=== PATIENT | female | born 2005 | race Caucasian/White ===

== ENCOUNTER 2024-03-16 08:02 | Emergency (ER) | payer BC, SELFPAY ==
[2024-03-16] VITALS (8 sets, daily range): BP systolic 98–118; BP diastolic 62–89; PULSE 72–91; RESP 16–20; TEMP 36.7; O2SAT 96–100; BMI 18.8
[2024-03-16] MEDS: LACTATED RINGERS 1000ML 1,000 ML 999 ML IV (08:16)
[2024-03-16] MEDS: ONDANSETRON 4MG/2ML VIAL 4 MG IV (08:16)
[2024-03-16 08:21] LABS: MANUAL DIFFERENTIAL MANUAL DIFFERENTIAL (MANUAL DIFF)
[2024-03-16 08:24] LABS: Basophils % 0.2 % (0.1-2.0); Eosinophils # 0.1 K/mm3 (0.0-0.4); Eosinophils % 0.6 % (0.1-12.0); Hematocrit 38.8 % (37.0-47.0); Lymphocytes # 0.6 K/mm3 (0.7-4.5); Lymphocytes % 4.1 % (10-50); Mean Corpuscular HGB Conc 30.8 g/dL (31.8-35.4); Mean Corpuscular Hemoglobin 27.1 pg (27.0-31.2); Mean Corpuscular Volume 87.9 fl (81-99); Mean Platelet Volume 7.5 fl (7.4-10.4); Monocytes # 0.7 K/mm3 (0.1-1.0); Monocytes % 5.2 % (1.7-9.3); Platelet Count 497 K/mm3 (142-424); Red Blood Count 4.41 M/mm3 (4.20-5.40); Red Cell Distribution Width 16.1 % (11.5-17.5); White Blood Count 14.5 K/mm3 (4.5-13.0)
--- NOTE | 2024-03-16 08:29 | HMH.EDGENADL ---
Discharge Plan Disposition Patient Disposition: Home, Self-Care Condition: Good Prescriptions Prescriptions: New dicyclomine 20 mg tablet 20 mg PO BID PRN (Reason: abdominal pain) 7 Days Qty: 14 0RF ondansetron 4 mg tablet,disintegrating 4 mg PO Q6H PRN (Reason: nausea and vomiting) 4 Days Qty: 16 0RF Referrals Follow up/Referrals: Provider,Referral, MD [Primary Care Provider] - See instructions Activity Restrictions/Add. Instructions Additional Instructions/Restrictions: You have been evaluated in the ED for your complaints. You may follow-up with your PCP in the next 3 to 5 days. Please return to ED for any new or worsening symptoms. Please drink plenty of fluids over the next several days. I have written for dicyclomine to assist with abdominal spasms. I have also written for Zofran to assist with nausea. Clinical Impressions Clinical Impression: Gastroenteritis Instructions Patient Instructions: Diarrhea, DI for Nausea -- Adult, Nausea and Vomiting-Adult Discharge ED Provider: Enrique Lopez Adult HPI General Chief complaint: Nausea/Vomiting/Diarrhea Stated complaint: weakness, Vomiting Time Seen by Provider: 03/16/24 08:10 Mode of Arrival: Ambulatory Source of Information: Patient Limitations: No Limitations Description of Symptoms (Recalled from ER Triage Doc. by RN): Patient reports N/V/D since 0400 this morning. History of Present Illness HPI narrative: 18-year-old female with past medical history significant for anxiety and depression presents today for evaluation concerning abdominal pain, nausea, vomiting and nonbloody diarrhea as well as a generalized headache onset around 3 AM this morning. She denies any fevers but states that she has felt chills. She states that she did not have anything unusual to eat before bed. Denies any chest pain, shortness of breath, dysuria or hematuria. No further complaints. Related Data Previous Rx's Medication Instructions Recorded dicyclomine 20 mg tablet 20 mg PO BID PRN abdominal pain 7 03/16/24 days #14 tabs ondansetron 4 mg disintegrating 4 mg PO Q6H PRN nausea and 03/16/24 tablet vomiting 4 days #16 tabs Allergies Allergy/AdvReac Type Severity Reaction Status Date / Time No Known Allergies Allergy Verified 03/16/24 08:14 [facility] Disclaimer: The information contained in this section may have been updated after the patient was seen, as this information can be updated by other users. Surgical History (Updated 03/16/24 @ 08:25 by Emily May RN) Hx of tonsillectomy Social History Smoking Status: Unknown if ever smoked alcohol intake: never current occupational status: employed Travel in the last 8 weeks: None ROS Obtained: Yes All systems reviewed & no additional complaints except as documented Physical Exam General General appearance: alert and in no apparent distress Head Head exam: atraumatic and normocephalic Eye Eye exam: Present normal appearance, PERRL and EOMI ENT ENT exam: Present normal oropharynx and mucous membranes moist Neck Neck exam: Present full ROM; Absent meningismus Respiratory Respiratory exam: Absent respiratory distress, wheezes, stridor or accessory muscle use Cardiovascular Cardiovascular exam: Present normal rhythm Abdominal Exam Abdominal exam: Present soft and tenderness; Absent distention, guarding, rebound or rigidity Abdominal tenderness: Present RUQ, LUQ and epigastrium Neurological Exam Neurological exam: Present alert, oriented X3 and CN II-XII intact; Absent motor sensory deficit Psychiatric Psychiatric exam: Present normal affect and normal mood Skin Skin exam: Present warm and dry Medical Decision Making Medical Records Medical records reviewed: Yes I reviewed the patient's medical records. Janes Inquiry Pt receiving controlled substance: No Janes was queried for this patient: No Vital Signs: 03/16/24 08:03 03/16/24 08:39 03/16/24 09:00 Temperature 98.0 F Temperature Source Oral Pulse Rate 87 74 Pulse Rate [Radial] 72 Respiratory Rate 16 18 20 Blood Pressure 107/72 L 98/67 L Blood Pressure [Right Arm] 114/66 Blood Pressure Mean 79 77 Blood Pressure Mean [Right Arm] 82 Blood Pressure Source [Right Arm] Automatic Cuff Blood Pressure Position [Right Arm] Sitting 02 Sat by Pulse Oximetry 98 100 100 Oxygen Delivery Method Room Air 03/16/24 10:02 03/16/24 11:00 03/16/24 11:30 Temperature Temperature Source Pulse Rate 86 91 H Pulse Rate [Radial] Respiratory Rate 20 Blood Pressure 118/89 106/69 L 99/63 L Blood Pressure [Right Arm] Blood Pressure Mean 97 75 70 Blood Pressure Mean [Right Arm] Blood Pressure Source [Right Arm] Blood Pressure Position [Right Arm] 02 Sat by Pulse Oximetry 96 100 Oxygen Delivery Method Room Air 03/16/24 12:00 Temperature Temperature Source Pulse Rate Pulse Rate [Radial] Respiratory Rate Blood Pressure 105/62 L Blood Pressure [Right Arm] Blood Pressure Mean 71 Blood Pressure Mean [Right Arm] Blood Pressure Source [Right Arm] Blood Pressure Position [Right Arm] 02 Sat by Pulse Oximetry Oxygen Delivery Method Lab Data Lab Results 03/16/24 08:00: WBC 14.5 H, RBC 4.41, Hgb 12.0 L, Hct 38.8, MCV 87.9, MCH 27.1, MCHC 30.8 L, RDW 16.1, Plt Count 497 H, MPV 7.5, Neut % (Auto) 90.0 H, Lymph % (Auto) 4.1 L, [place] % (Auto) 5.2, Eos % (Auto) 0.6, Baso % (Auto) 0.2, Neut # (Auto) 13.0 H, Lymph # (Auto) 0.6 L, [place] # (Auto) 0.7, Eos # (Auto) 0.1, Baso # (Auto) 0.0, Total Counted 100, Neutrophils % (Manual) 93 H, Band Neutrophils % 2.0, Lymphocytes % (Manual) 1 L, Monocytes % (Manual) 4, Platelet Estimate Slight increase, RBC Morphology Normal, Sodium 141, Potassium 3.7, Chloride 107, Carbon Dioxide 23, Anion Gap 14.7, BUN 13, Creatinine 0.80, Estimated Creat Clear 97, Estimated GFR 92, Est GFR ( Amer) 112, Glucose 116 H, Calcium 10.3 H, Total Bilirubin 1.3, AST 30, ALT 22, Alkaline Phosphatase 75, NT-Pro-B Natriuret Pep < 20.0, Total Protein 8.0, Albumin 5.0, Globulin 3.0, Albumin/Globulin Ratio 1.7, Lipase 81, Serum HCG, Qual Negative 03/16/24 09:00: Lactate 1.7, SARS-CoV-2 (PCR) Not detected, Influenza A Untype (PCR) Not detected, Influenza Type B (PCR) Not detected 03/16/24 09:50: Urine Color Yellow, Urine Appearance Clear, Urine pH 8.5, Ur Specific [place] 1.015, Urine Protein Negative, Urine Glucose (UA) Negative, Urine Ketones Trace, Urine Blood Negative, Urine Nitrate Negative, Urine Bilirubin Negative, Urine Urobilinogen 0.2, Ur Leukocyte Esterase Negative, Urine RBC None, Urine WBC Occasional, Ur Squamous Epith Cells Occasional, Urine Bacteria Trace 03/16/24 08:00 03/16/24 08:00 Orders (Tests/Meds): ED MEDICATIONS Generic Name Dose Route Start Last Admin Trade Name Freq PRN Reason Stop Dose Admin Sodium Chloride 10 ml 03/16/24 08:14 Sodium Chloride 0.9% 10ml Flush Syringe IV 04/15/24 08:13 NEEDED PRN Maintain IV Site Discontinued Medications Generic Name Dose Route Start Last Admin Trade Name Freq PRN Reason Stop Dose Admin Belladonna Alkaloids 60 ml 03/16/24 09:27 03/16/24 09:29 Belladonna Alkaloids 60 Ml Ml PO 03/16/24 09:28 60 ml ONCE ONE Administration Lactated Ringer's 1,000 mls @ 999 mls/hr 03/16/24 08:14 03/16/24 08:16 Lactated Ringer's 1000 Ml Bag IV 03/16/24 09:14 999 mls/hr .Q1H1M ONE Administration Lactated Ringer's 1,000 mls @ 999 mls/hr 03/16/24 08:20 03/16/24 08:25 Lactated Ringer's 1000 Ml Bag IV 03/16/24 09:20 Not Given .Q1H1M ONE Iopamidol 75 ml 03/16/24 10:35 03/16/24 10:36 Iopamidol-370 (76%);100ml Bottle IV 03/16/24 10:36 75 ml ONCE ONE Administration Morphine Sulfate 2 mg 03/16/24 08:20 03/16/24 08:32 Morphine 2mg/Ml Syringe IV 03/16/24 08:21 2 mg ONCE ONE Administration Morphine Sulfate 4 mg 03/16/24 10:10 03/16/24 10:21 Morphine 4mg/Ml Syringe IV 03/16/24 10:11 4 mg ONCE ONE Administration Ondansetron HCl 4 mg 03/16/24 08:14 03/16/24 08:16 Ondansetron 4mg/2ml Vial IV 03/16/24 08:15 4 mg ONCE ONE Administration Ondansetron HCl 4 mg 03/16/24 08:20 03/16/24 08:25 Ondansetron 4mg/2ml Vial IV 03/16/24 08:21 Not Given ONCE ONE Ondansetron HCl 4 mg 03/16/24 08:26 03/16/24 08:28 Ondansetron 4mg/2ml Vial IV 03/16/24 08:27 Not Given ONCE ONE Sodium Chloride 10 ml 03/16/24 10:35 03/16/24 10:36 Sodium Chloride 0.9% 10ml Syr (Rad Only) IV 03/16/24 10:36 10 ml ONCE ONE Administration ORDERS Category Date Time Status CT abdomen pelvis w con Stat Cat Scan 03/16/24 10:10 Completed BNP [NT Pro Brain Natriuretic Pep.] Stat Lab 03/16/24 08:00 Completed Complete Blood Count Man Dif Stat Lab 03/16/24 08:00 Completed Comprehensive Metabolic Panel Stat Lab 03/16/24 08:00 Completed Lactic Acid Stat Lab 03/16/24 09:00 Completed Lipase Stat Lab 03/16/24 08:00 Completed Rapid PCR Covid and Flu A/B Stat Lab 03/16/24 09:00 Completed Serum [HCG Qualitative, Serum] Stat Lab 03/16/24 08:00 Completed Urinalysis and Microscopic Stat Lab 03/16/24 09:50 Completed Medical Decision Narrative: 18-year-old female with past medical history significant for anxiety and depression presents today for evaluation concerning abdominal pain, nausea, vomiting and nonbloody diarrhea as well as a generalized headache onset around 3 AM this morning. She denies any fevers but states that she has felt chills. She states that she did not have anything unusual to eat before bed. On assessment she was medically stable and in no acute distress. Afebrile. Abdomen was soft and nondistended however she was tender in the upper abdomen. No lower abdominal tenderness. Chest clear to auscultation bilaterally. Differential diagnoses include but limited to gastritis, gastroenteritis, pancreatitis, cholecystitis, viral syndrome, others. Lab workup today showed a WBC of 14.5. No signs of UTI on urinalysis. Negative COVID and influenza swabs. Lipase within range at 81. I did reassess patient and she continued to have abdominal pain however now she stated it was in her right lower quadrant. I did palpate patient and she did have right lower quadrant tenderness. Given this and given her persistent pain I did order for CT abdomen pelvis with contrast and no appendicitis was identified however diarrhea was noted. I did reassess patient after further pain meds and she was resting comfortably in bed in no acute distress. Had been able to tolerate oral intake with liquids without emesis. I discussed ED workup and plan to discharge home with supportive care measures in the setting of a likely gastroenteritis. Will send with Prabhjot to assist with symptoms. She verbalized understanding agreement. Provided with return ED precautions. She was discharged medically stable in no acute distress Critical Care Critical Care Time Critical Care Time: No
[2024-03-16 08:30] LABS: Chloride 107 mmol/L (98-107)
[2024-03-16 08:31] LABS: Potassium 3.7 mmoL/L (3.5-5.1); Sodium 141 mmol/L (136-145)
[2024-03-16] MEDS: MORPHINE 2MG/ML SYRINGE 2 MG IV (08:32)
[2024-03-16 08:33] LABS: Alanine Aminotransferase 22 U/L (12-78); Aspartate Amino Transferase 30 U/L (14-36); Blood Urea Nitrogen 13 mg/dl (7-17); Creatinine Clearance Estimated 97 mL/min (50-200); Estimated Glomerular Filt Rate 92 ml/min (>60); GFR (African American) 112 ML/MIN (>60)
[2024-03-16 08:34] LABS: Albumin/Globulin Ratio 1.7 (1.1-1.8); Alkaline Phosphatase 75 U/L (38-126); Anion Gap 14.7 mEq/L (5-15); Bilirubin,Total 1.3 mg/dl (0.2-1.3); Calcium 10.3 mg/dl (8.4-10.2); Carbon Dioxide 23 mmol/L (22.0-30.0); Glucose 116 mg/dl (74-100); Lipase 81 U/L (23-300)
[2024-03-16 08:51] LABS: HCG Qualitative, Serum Negative (Negative)
[2024-03-16 09:11] LABS: NT Pro Brain Natriuretic Pep. < 20.0 pg/mL (0-125)
[2024-03-16 09:11] LABS: Coronavirus 19, PCR Not Detected (NotDetected); Influenza A, PCR Not Detected (NotDetected); Influenza B, PCR Not Detected (NotDetected)
[2024-03-16 09:14] LABS: Lymphocytes % 1 % (10-50); Monocytes % 4 % (2-9); Neutrophils % 93 % (42-76); Total Cells Counted 100
[2024-03-16 09:16] LABS: Platelet Estimate Slight Increase; RBC Morphology Normal
[2024-03-16] MEDS: BELLADONNA ALKALOIDS 60 ML ML PO (09:29)
[2024-03-16 09:30] LABS: Lactic Acid 1.7 mmol/L (0.7-2.1)
--- NOTE | 2024-03-16 09:46 | PC.NURSE ---
pt in restroom at this time
[2024-03-16 09:54] LABS: Microscopic, Urine URINE MICROSCOPIC (MICROSCOPIC)
--- NOTE | 2024-03-16 10:09 | PC.NURSE ---
DR YU AT BEDSIDE TO REEVALUATE PT
--- NOTE | 2024-03-16 10:09 | PC.NURSE ---
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 MD was alerted and saw pt at bedside
[2024-03-16 10:10] LABS: Appearance,Urine CLEAR (Clear); Bilirubin,Urine Negative (Negative); Blood, Urine Negative (Negative); Color,Urine YELLOW (Yellow); Glucose,Urine (UA) Negative (Negative); Ketones,Urine TRACE (Negative); Leukocyte Esterase,Urine Negative (Negative); Nitrate,Urine Negative (Negative); PH,Urine 8.5 (5.0-8.5); Protein,Urine Negative (Negative); Specific Gravity, Urine 1.015 (1.005-1.030); Urobilinogen,Urine 0.2 EU/dl (0.2)
--- NOTE | 2024-03-16 10:10 | CT_ITS ---
PROCEDURE INFORMATION: Exam: CT Abdomen And Pelvis With Contrast Exam date and time: 03/16/2024 10:33 AM Age: 18 years old Clinical indication: Abdominal pain; Additional info: Upper abd pain, now rlq pain TECHNIQUE: Imaging protocol: Computed tomography of the abdomen and pelvis with contrast. Radiation optimization: All CT scans at this facility use at least one of these dose optimization techniques: automated exposure control; mA and/or kV adjustment per patient size (includes targeted exams where dose is matched to clinical indication); or iterative reconstruction. Contrast material: ISOVUE; Contrast volume: 75 ml; Contrast route: IV; COMPARISON: No relevant prior studies available. FINDINGS: Liver: Normal. No mass. Gallbladder and bile ducts: Gallbladder is moderately distended with a fundal fold. Pancreas: Normal. No ductal dilation. Spleen: Normal. No splenomegaly. Adrenal glands: Normal. No mass. Kidneys and ureters: The kidneys enhance symmetrically and there is no hydronephrosis. Stomach and bowel: Evaluation of the bowel is somewhat limited without the benefit of enteric contrast. There is no evidence for small bowel obstruction. Liquid stool is noted in the proximal 2/3 of the colon. The distal 3rd and rectum are relatively contracted. Appendix: No evidence of appendicitis. Intraperitoneal space: Unremarkable. No free air. No significant fluid collection. Vasculature: Unremarkable. No abdominal aortic aneurysm. Lymph nodes: Unremarkable. No enlarged lymph nodes. Urinary bladder: The urinary bladder is contracted. Reproductive: Unremarkable as visualized. Bones/joints: Minor lumbar spondylosis is noted. Soft tissues: Unremarkable. IMPRESSION: Diarrhea.
--- NOTE | 2024-03-16 10:20 | PC.NURSE ---
pt taken for CT at this time
[2024-03-16 10:21] LABS: Bacteria,Urine Trace /lpf; Squamous Epithelial Cell,Urine Occasional #/hpf (0-5); WBC,Urine Occasional #/hpf (0-3)
[2024-03-16] MEDS: MORPHINE 4MG/ML SYRINGE 4 MG IV (10:21)
[2024-03-16] MEDS: IOPAMIDOL-370 (76%);100ML BOTTLE 75 ML IV (10:36)
[2024-03-16] MEDS: SODIUM CHLORIDE 0.9% 10ML SYR (RAD ONLY) 10 ML IV (10:36)
--- NOTE | 2024-03-16 10:39 | PC.NURSE ---
pt back from rad
--- NOTE | 2024-03-16 10:40 | PC.NURSE ---
pt back from ct scan
--- NOTE | 2024-03-16 11:20 | PC.NURSE ---
Pt resting quietly with eyes closed. Respirations are even and unlabored at this time. Call light remains within reach.
== END 2024-03-16 14:15 | disposition home or self-care (01) ==
PROVIDERS: Emergency Provider Emergency Medicine
DX: K52.9 Noninfective gastroenteritis and colitis, unspecified (principal); R10.9 Unspecified abdominal pain; R11.2 Nausea with vomiting, unspecified
CPT/HCPCS: 74177; 80053; 81001; 83605; 83690; 83880; 84703; 85007; 85014; 85018; 85048; 85049; 87636; 96361; 96374; 96375; 96376; 99285; J2405; Q9967

== ENCOUNTER 2024-10-03 08:31 | Outpatient (CLI) | payer BC, SELFPAY ==
--- NOTE | 2024-10-03 08:38 | US_ITS ---
PROCEDURE: US TRANSVAGINAL CLINICAL INDICATION: AUB and pelvic pain COMPARISON: CT CT ABDOMEN PELVIS W CON from 03/16/2024 FINDINGS: Transvaginal sonographic images of the pelvis were obtained. UTERUS: 8.2cm x 5.0cmx 3.6 cm anteverted with a combined endometrial thickness of 9.7mm. The endometrium is trilaminar. There appears to be fluid that is mobile within the endometrium. There are 2 cervical nabothian cysts measuring 6.5 mm and 6.2 mm LEFT OVARY: 3.2cmx2.3cmx1.8cm with a volume of 6.9ml. There are multiple small peripheral follicles giving the ovary a polycystic appearance. RIGHT OVARY: 4.5cmx 3.3cmx2.5cm with a volume of 19.5ml. There are multiple small peripheral follicles giving the ovary a polycystic appearance. Both ovaries are seen and appear polycystic. Doppler flow to both ovaries are seen. There is no fluid in the cul-de-sac. IMPRESSION: 1. Anteverted uterus normal in shape and size. The endometrium appears normal and there is movement of fluid within the endometrium. Patient likely having her menses. 2. Both ovaries are seen and appear polycystic. The right ovary is larger than the left ovary. 3. No fluid in the cul-de-sac. Dictated by: Douglas Conroy MD 10/03/2024 11:43 Douglas Conroy MD in [facility] 10/03/2024 11:43
== END 2024-10-03 23:59 | disposition home or self-care (01) ==
LOC: RAD 08:32
PROVIDERS: Visit Provider Obstetrics & Gynecology
DX: R10.2 Pelvic and perineal pain (principal); N93.9 Abnormal uterine and vaginal bleeding, unspecified
CPT/HCPCS: 76830

== ENCOUNTER 2024-10-04 09:41 | Outpatient (CLI) | payer BC, SELFPAY ==
[2024-10-04 10:27] LABS: Basophils % 0.7 % (0.1-2.0); Eosinophils # 0.1 K/mm3 (0.0-0.4); Eosinophils % 1.6 % (0.1-12.0); Hematocrit 32.4 % (37.0-47.0); Hemoglobin 10.5 g/dL (12.2-16.2); Lymphocytes # 1.7 K/mm3 (0.7-4.5); Mean Corpuscular HGB Conc 32.4 g/dL (31.8-35.4); Mean Corpuscular Volume 86.4 fl (81-99); Mean Platelet Volume 7.2 fl (7.4-10.4); Monocytes # 0.4 K/mm3 (0.1-1.0); Monocytes % 6.6 % (1.7-9.3); Neutrophils # 3.8 K/mm3 (1.8-7.8); Neutrophils % 63.1 % (37.0-80.0); Platelet Count 374 K/mm3 (142-424); Red Blood Count 3.75 M/mm3 (4.20-5.40); Red Cell Distribution Width 15.8 % (11.5-17.5)
== END 2024-10-04 23:59 | disposition home or self-care (01) ==
LOC: LAB 09:41
PROVIDERS: Visit Provider Obstetrics & Gynecology
DX: N92.6 Irregular menstruation, unspecified (principal)
CPT/HCPCS: 36415; 85025

== ENCOUNTER 2025-07-23 00:05 | Emergency (ER) | payer BC, SELFPAY ==
--- OUTSIDE RECORDS SUMMARY | 2025-07-11 13:00 | XMS_ITS | Encounter Summary ---
Author Organization [facility] Address [address] [place] [address] Care Team Providers Care Talent Acquisition Director Name Role Phone Solomon Bucio Primary Care Provider Reason for Visit * Reason Comments Annual Exam Needs TSPOT. Encounter Details Date Type Department Care Team (Late st Contact Info) Description 07/11/2025 1:00 PM EDT Office Visit [facility] [address] [phone] Solomon Bucio PA [address] [place] [address] Routine general medical examination at a health care facility (Primary Dx); Female hirsutism; Irregular menses; Screening-pulmonar y TB Social History Tobacco Use Types Packs/Day Years Used Date Smoking Tobacco: Never Passive Smoke Exposure: Current Smokeless Tobacco: Never Tobacco Cessation:Counseling Given: Not Answered Alcohol Use Standard Drinks/Week Comments Yes 0 (1 standard drink = 0.6 oz pur e alcohol) occasional PHQ-2 Answer Date Recorded Retired PHQ-9: Brief Depression Severity Measure Score 0 02/28/2023 PHQ-2 Answer Date Recorded Patient Health Questionnaire-9 Score 0 07/11/2025 Comments No Sex and Gender Information Value Date Recorded Sex Assigned at Female 07/08/2025 2:27 PM EDT Legal Sex Female 11:53 AM EDT Gender Identity Not on file Sexual Orientation Lesbian or Yang 07/08/2025 2: 27 PM EDT Occupation Industry Job Start Date Job End Date Simple-Fill Not on file Not on file Not on file documented as of this encounter Last Filed Vital Signs Vital Sign Reading Time Taken Comments Blood Pressure 104/68 07/11/2025 12:56 PM EDT Pulse 61 07/11/2025 12:56 PM EDT Temperature 36.4 C (97.6 F) 07/11/2025 12:56 PM EDT Respiratory Rate 14 07/11/2025 12:5 6 PM EDT Oxygen Saturation 99% 07/11/2025 12: 56 PM EDT Inhaled Oxygen Concentration - - Weight 54.8 kg (120 lb 12.8 oz) 025 12:56 PM EDT Height 167.6 cm (5' 5.98 ) 07/11/2025 1 2:56 PM EDT Body Mass Index 19.51 07/11/2025 12:56 PM EDT documented in this encounter Functional Status documented as of this encounter Progress Notes * Solomon Bucio PA - 07/11/2025 1:00 PM EDT Subjective Yoseph Lynn is a 20 y.o. 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 HENT: Negative. Eyes: Negative. Respiratory: Negative. Cardiovascular: Negative. Gastrointestinal: Negative. Endocrine: Negative. Genitourinary: Negative. Musculoskeletal: Negative. Skin: Negative. Allergic/Immunologic: Negative. Neurological: Negative. Hematological: Negative. Psychiatric/Behavioral: Negative. All other systems reviewed and are negative. Objective Vitals: 07/11/25 1256 BP: 104/68 Pulse: 61 Resp: 14 Temp: 97.6 ??F (36.4 ??C) SpO2: 99% Physical Exam Vitals and nursing note reviewed. Constitutional: General: She is not in acute distress. Appearance: Normal appearance. She is well-developed. She is not ill-appearing, toxic-appearing or diaphoretic. HENT: Head: Normocephalic and atraumatic. Right Ear: External ear normal. Left Ear: External ear normal. Eyes: Conjunctiva/sclera: Conjunctivae normal. Pupils: Pupils are equal, round, and reactive to light. Neck: Thyroid: No thyromegaly. Vascular: No carotid bruit or JVD. Cardiovascular: Rate and Rhythm: Normal rate and regular rhythm. Pulses: Normal pulses. Heart sounds: Normal heart sounds. No murmur heard. Pulmonary: Effort: Pulmonary effort is normal. No respiratory distress. Breath sounds: Normal breath sounds. Abdominal: General: Bowel sounds are normal. Palpations: Abdomen is soft. There is no mass. Tenderness: There is no abdominal tenderness. Musculoskeletal: General: No swelling. Normal range of motion. Cervical back: Normal range of motion and neck supple. Lymphadenopathy: Cervical: No cervical adenopathy. Skin: General: Skin is warm and dry. Findings: No lesion or rash. Neurological: Mental Status: She is alert and oriented to person, place, and time. Cranial Nerves: No cranial nerve deficit. Sensory: No sensory deficit. Motor: No weakness. Coordination: Coordination normal. Gait: Gait normal. Deep Tendon Reflexes: Reflexes are normal and symmetric. Psychiatric: Mood and Affect: Mood normal. Behavior: Behavior normal. Thought Content: Thought content normal. Judgment: Judgment normal. Physical Exam Assessment & Plan Assessment & Plan Diagnoses and all orders for this visit: 1. Routine general medical examination at a health care facility (Primary) - Hemoglobin A1c; Future 2. Female hirsutism - TSH; Future - Lipid Panel; Future - Comprehensive metabolic panel; Future - CBC (No Diff); Future - Estradiol; Future - Testosterone, Free, Total; Future - Progesterone; Future 3. Irregular menses - CBC (No Diff); Future - Estradiol; Future - Testosterone, Free, Total; Future - Progesterone; Future 4. Screening-pulmonary TB - QuantiFERON-TB Gold Plus ([place] heparin tube); Future Preventive medicine discussed, diet, exercise, healthy living discussed at length. Discussed nutrition, physical activity, healthy weight, injury prevention, misuse of tobacco, alcohol and drugs, dental health, mental health, immunizations, screening Part of this note may be an electronic toll gate tender/translation of spoken language to printed textusing the Deolanation System. Patient or patient retail service representative verbalized consent for the use of Ambient Listening during the visit with LIDYA Petersen for chart documentation. 07/11/2025 13:55 EDT documented in this encounter Plan of Treatment Not on file documented as of this encounter Results * Hemoglobin A1c (07/11/2025 1:58 PM EDT) Hemoglobin A1C 5.30 4.80 - 5.60 % 07/11/2025 11:30 PM EDT [facility] Blood Venipuncture / Unknown 07/11/2025 1:58 PM EDT 07/11/2025 1:58 PM EDT [facility] - 07/11/2025 11:30 PM EDT Hemoglobin A1C Ranges: Increased Risk for Diabetes 5.7% to 6.4% Diabetes >= 6.5% Diabetic Goal < 7.0% Solomon BOSE LAB BLOOD ORDERABLES Fi nal Result [facility]
[address] [place] [address], * Progesterone (07/11/2025 1:58 PM EDT) Progesterone 0.38 ng/mL 07/11/2025 11:48 PM EDT [facility] Blood Venipuncture / Unknown 07/11/2025 1:58 PM EDT 07/11/2025 1:58 PM EDT [facility] - 07/11/2025 11:48 PM EDT Progesterone Reference Ranges: Adult Males: 0.0-0.5 ng/mL Adult Femles: Follicular phase 0.1-0.9 ng/mL Ovulation phase 0.1-12.0 ng/mL Luteal phase 1.8-23.9 ng/mL Postmenopausal 0.0-0.1 ng/mL : First Trimester 11.0-44.3 ng/mL Second Trimester 25.4-83.3 ng/mL Third Trimester 58.7-214.0 ng/mL Results may be falsely increased if patient taking Biotin. Solomon BOSE LAB BLOOD ORDERABLES Fi nal Result [facility]
[address] [place] [address], [place] [phone] * Testosterone, Free, Total (07/11/2025 1:58 PM EDT) Testosterone, Total 44 13 - 71 ng/dL 07/21/2025 11:10 AM EDT [facility] Testosterone, Free 1.7 0.0 - 4.2 pg/mL 07/21/2025 11:10 AM EDT [facility] Blood Venipuncture / Unknown 07/11/2025 1:58 PM EDT 07/11/2025 1:58 PM EDT Narrative [facility] - 07/21/2025 11:10 AM EDT Performed at: [address] [id number] Director Biostatistics: Dennis Morrell PhD, Phone: [phone] Performed at: [address] [id number] Director Biostatistics: Annie Ford MD, Phone: [phone] Solomon BOSE LAB BLOOD ORDERABLES Fi nal Result Performing Organization Address City/[facility]/ZIP Co de Phone Number [facility] [address] [place] [address], [place] [phone] * Estradiol (07/11/2025 1:58 PM EDT) Estradiol 84.1 pg/mL 07/11/2025 11:48 PM EDT [facility] Blood Venipuncture / Unknown 07/11/2025 1:58 PM EDT 07/11/2025 1:58 PM EDT Narrative [facility] - 07/11/2025 11:48 PM EDT Estradiol Reference Ranges: Adult Males: 7.6-42.6 pg/mL Adult Femles: Follicular phase 12.5-166.0 pg/mL Ovulation phase 85.8-498.0 pg/mL Luteal phase 43.8-211.0 pg/mL Postmenopausal <6.0-54.7 pg/mL : First Trimester 215.0- >4300.0 pg/mL Child (1-10 years): Male <6.0-20.0 pg/mL Female 6.0-27.0 pg/mL Results may be falsely increased if patient taking Biotin. Solomon BOSE LAB BLOOD ORDERABLES nal Result [facility]
[address] [place] [address], * CBC (No Diff) (07/11/2025 1:58 PM EDT) WBC 7.73 3.40 - 10.80 10*3/mm3 07/11/2025 11:02 PM EDT [facility] RBC 4.19 3.77 - 5.28 10*6/mm3 07/11/2025 11:02 PM EDT [facility] Hemoglobin 12.0 12.0 - 15.9 g/dL 07/11/2025 11:02 PM EDT [facility] Hematocrit 37.6 34.0 - 46.6 % 07/11/2025 11:02 PM EDT [facility] MCV 89.7 79.0 - 97.0 fL 07/11/2025 11:02 PM EDT [facility] MCH 28.6 26.6 - 33.0 pg 07/11/2025 11:02 PM EDT [facility] MCHC 31.9 31.5 - 35.7 g/dL 07/11/2025 11:02 PM EDT [facility] RDW 14.5 12.3 - 15.4 % 07/11/2025 11:02 PM EDT [facility] RDW-SD 47.5 37.0 - 54.0 fl 07/11/2025 11:02 PM EDT [facility] MPV 9.8 6.0 - 12.0 fL 07/11/2025 11:02 PM EDT [facility] Platelets 431 140 - 450 10*3/mm3 07/11/2025 11:02 PM EDT [facility] Blood Venipuncture / Unknown 07/11/2025 1:58 PM EDT 07/11/2025 1:58 PM EDT Solomon BOSE LAB BLOOD ORDERABLES Fi nal Result [facility]
[address] [place] [address], * Comprehensive metabolic panel (07/11/2025 1:58 PM EDT) Glucose 82 65 - 99 mg/dL 07/11/2025 11:43 PM EDT [facility] BUN 13.0 6.0 - 20.0 mg/dL 07/11/2025 11:43 PM EDT [facility] Creatinine 0.92 0.57 - 1.00 mg/dL 07/11/2025 11:43 PM EDT [facility] Sodium 139 136 - 145 mmol/L 07/11/2025 11:43 PM EDT [facility] Potassium 4.4 3.5 - 5.2 mmol/L 07/11/2025 11:43 PM EDT [facility] Chloride 102 98 - 107 mmol/L 07/11/2025 11:43 PM EDT [facility] CO2 22.7 22.0 - 29.0 mmol/L 07/11/2025 11:43 PM EDT [facility] Calcium 10.3 8.6 - 10.5 mg/dL 07/11/2025 11:43 PM EDT [facility] Total Protein 7.8 6.0 - 8.5 g/dL 07/11/2025 11:43 PM EDT [facility] Albumin 4.7 3.5 - 5.2 g/dL 07/11/2025 11:43 PM EDT [facility] ALT (SGPT) 15 1 - 33 U/L 07/11/2025 11:43 PM EDT [facility] AST (SGOT) 15 1 - 32 U/L 07/11/2025 11:43 PM EDT [facility] Alkaline Phosphatase 70 39 - 117 U/L 07/11/2025 11:43 PM EDT [facility] Total Bilirubin 0.6 0.0 - 1.2 mg/dL 07/11/2025 11:43 PM EDT [facility] Globulin 3.1 gm/dL 07/11/2025 11:43 PM EDT [facility] A/G Ratio 1.5 g/dL 07/11/2025 11:43 PM EDT [facility] BUN/Creatinine Ratio 14.1 7.0 - 25.0 07/11/2025 11:43 PM EDT [facility] Anion Gap 14.3 5.0 - 15.0 mmol/L 07/11/2025 11:43 PM EDT [facility] eGFR 91.0 >60.0 mL/min/1.7 3 07/11/2025 11:43 PM EDT [facility] Blood Venipuncture / Unknown 07/11/2025 1:58 PM EDT 07/11/2025 1:58 PM EDT [facility] - 07/11/2025 11:43 PM EDT GFR Categories in Chronic Kidney Disease (CKD) GFR Category GFR (mL/min/1.73) Interpretation G1 90 or greater Normal or high (1) G2 60-89 Mild decrease (1) G3a 45-59 Mild to moderate decrease G3b 30-44 Moderate to severe decrease G4 15-29 Severe decrease G5 14 or less Kidney failure (1)In the absence of evidence of kidney disease, neither GFR category G1 or G2 fulfill the criteria for CKD. eGFR calculation 2020 CKD-EPI creatinine equation, which does not include race as a factor us Solomon BOSE [facility] BLOOD ORDERABLES Fi nal Result [facility]
[address] [place] [address], * (ABNORMAL) Lipid Panel (07/11/2025 1:58 PM EDT) Total Cholesterol 191 0 - 200 mg/dL 07/11/2025 11:43 PM EDT [facility] Triglycerides 45 0 - 150 mg/dL 07/11/2025 11:43 PM EDT [facility] HDL Cholesterol 89(H) 40 - 60 mg/dL 07/11/2025 11:43 PM EDT [facility] LDL Cholesterol 93 0 - 100 mg/dL 07/11/2025 11:43 PM EDT [facility] VLDL Cholesterol 9 5 - 40 mg/dL 07/11/2025 11:43 PM EDT [facility] LDL/HDL Ratio 1.04 07/11/2025 11:43 PM EDT [facility] Blood Venipuncture / Unknown 07/11/2025 1:58 PM EDT 07/11/2025 1:58 PM EDT Narrative [facility] - 07/11/2025 11:43 PM EDT Cholesterol Reference Ranges (U.S. Department of Health and Human Services ATP III Classifications) Desirable <200 mg/dL Borderline High 200-239 mg/dL High Risk >240 mg/dL Triglyceride Reference Ranges (U.S. Department of Health and Human Services ATP III Classifications) Normal <150 mg/dL Borderline High 150-199 mg/dL High 200-499 mg/dL Very High >500 mg/dL HDL Reference Ranges (U.S. Department of Health and Human Services ATP III Classifications) Low <40 mg/dl (major risk factor for CHD) High >60 mg/dl ('negative' risk factor for CHD) LDL Reference Ranges (U.S. Department of Health and Human Services ATP III Classifications) Optimal <100 mg/dL Near Optimal 100-129 mg/dL Borderline High 130-159 mg/dL High 160-189 mg/dL Very High >189 mg/dL LDL is calculated using the NIH LDL-C calculation. Solomon BOSE LAB BLOOD ORDERABLES Fi nal Result Performing Organization Address [facility] Co de Phone Number [facility]
[address] [place] [address], * TSH (07/11/2025 1:58 PM EDT) [facility] TSH 2.120 0.270 - 4.200 uIU/mL 07/11/2025 11:48 PM EDT [facility] Blood Venipuncture / Unknown 07/11/2025 1:58 PM EDT 07/11/2025 1:58 PM EDT Solomon BOSE LAB BLOOD ORDERABLES Fi nal Result Performing Organization Address [facility] de Phone Number [facility]
[address] [place] [address], * QuantiFERON-TB Gold Plus ([place] heparin tube) (07/11/2025 1:58 PM EDT) [facility] QuantiFERON Incubation Incubation performed. 07/16/2025 6:09 PM EDT [facility] QUANTIFERON-TB GOLD PLUS Negative Negative 07/16/2025 6:09 PM EDT [facility] Comment: No response to M tuberculosis antigens detected. Infection with M tuberculosis is unlikely, but high risk individuals should be considered for additional testing (ATS/IDSA/CDC Clinical Practice Guidelines, 2017). The reference range is an Antigen minus Nil result of <0.35 IU/mL. Chemiluminescence immunoassay methodology Blood Venipuncture / Unknown 07/11/2025 1:58 PM EDT 07/11/2025 1:58 PM EDT Narrative [facility] - 07/16/2025 6:09 PM EDT Performed at: [address] [place] [id number] Director Biostatistics: Dennis Morrell PhD, Phone: [phone] Solomon BOSE [facility] BLOOD ORDERABLES Fi nal Result [facility] [address] [place] [address], documented in this encounter Visit Diagnoses Diagnosis Routine general medical examination at a health care facility- Primary Female hirsutism Hirsutism Irregular menses Irregular menstrual cycle Screening-pulmonary TB Screening examination for pulmonary tuberculosis documented in this encounter Care Teams Talent Acquisition Director Relationship Specialty Start Date End Date Solomon Bucio PA [address] [place] [address] PCP - General Family Medicine 02/28/23 documented as of this encounter
--- OUTSIDE RECORDS SUMMARY | 2025-07-11 14:05 | XMS_ITS | Encounter Summary ---
[facility] Organization [facility] Address [address] [place] [address] Care Team Providers Care Public Bath Attendant Name Role Phone Solomon Bucio Primary Care Provider Encounter Details Date Type Department Care Team (Late st Contact Info) Description 07/11/2025 2:05 PM EDT Lab [facility] AT [address] [place] [address] Routine general medical examination at a health care facility; Screening-pulmonary TB; Female hirsutism; Irregular menses Social History Tobacco Use Types Packs/Day Years Used Date Smoking Tobacco: Never Passive Smoke Exposure: Current Smokeless Tobacco: Never Alcohol Use Standard Drinks/Week Comments Yes 0 [...] 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 Not on file Not on file documented as of this encounter Functional Status documented as of this encounter Plan of Treatment Not on file documented as of this encounter Procedures Procedure Name Priority Date/Time Associated Diagnosis Comments QUANTIFERON-TB GOLD PLUS Routine 07/11/2025 1:58 PM EDT Routine general medical examination at a health care facility Screening-pulmonary TB QUANTIFERON-TB GOLD PLUS (LI-HEP) Routine 07/11/2025 1:58 PM EDT Routine general medical examination at a health care facility Screening-pulmonary TB PROGESTERONE Routine 07/11/2025 1:58 PM EDT Female hirsutism Irregular menses ESTRADIOL Routine 07/11/2025 1:58 PM EDT Female hirsutism Irregular menses CBC (NO DIFF) Routine 07/11/2025 1:58 PM EDT Routine general medical examination at a health care facility Female hirsutism Irregular menses TESTOSTERONE, FREE, TOTAL Routine 07/11/2025 1:58 PM EDT Female hirsutism Irregular menses TSH Routine 07/11/2025 1:58 PM EDT Routine general medical examination at a [facility] facility HEMOGLOBIN A1C Routine 07/11/2025 1:58 PM EDT Routine general medical examination at a [facility] care facility LIPID PANEL Routine 07/11/2025 1:58 PM EDT Routine general medical examination at a [facility] care facility COMPREHENSIVE METABOLIC PANEL Routine 07/11/2025 1:58 PM EDT Routine general medical examination at a [facility] facility documented in this encounter Results * QuantiFERON-TB Gold Plus (07/11/2025 1:58 PM EDT) [facility] QuantiFERON Criteria Comment 07/16/2025 6:09 PM EDT [facility] Comment: QuantiFERON-TB Gold Plus is a qualitative indirect test for M tuberculosis infection (including disease) and is intended for use in conjunction with risk assessment, radiography, and other medical and diagnostic evaluations. The QuantiFERON-TB Gold Plus result is determined by subtracting the Nil value from either TB antigen (Ag) value. The Mitogen tube serves as a control for the test. QUANTIFERON TB1 AG VALUE 0.06 IU/mL 07/16/2025 6:09 PM EDT [facility] QUANTIFERON TB2 AG VALUE 0.05 IU/mL 07/16/2025 6:09 PM EDT [facility] QuantiFERON Nil Value 0.06 IU/mL 07/16/2025 6:09 PM EDT [facility] QuantiFERON Mitogen Value >10.00 IU/mL 07/16/2025 6:09 PM EDT [facility] Blood Venipuncture / Unknown 07/11/2025 1:58 PM EDT 07/11/2025 1:58 PM EDT Narrative [facility] - 07/16/2025 6:09 PM EDT Performed at: - [address] [id number] [employer] Executive Director: Dennis Morrell PhD, Phone: [phone] Solomon BOSE LAB BLOOD ORDERABLES Fi nal Result Performing Organization Address City/[facility]/ZIP Co de Phone Number [address] [address], [place] [phone] * Hemoglobin A1c (07/11/2025 1:58 PM EDT) Hemoglobin A1C 5.30 4.80 - 5.60 % 07/11/2025 11:30 PM EDT [facility] Blood Venipuncture / Unknown 07/11/2025 1:58 PM EDT 07/11/2025 1:58 PM EDT Parminder [facility] - 07/11/2025 11:30 PM EDT Hemoglobin A1C Ranges: Increased Risk for Diabetes 5.7% to 6.4% Diabetes >= 6.5% Diabetic Goal < 7.0% Solomon BOSE LAB BLOOD ORDERABLES Fi nal Result [facility]
[address] [place] [address], [place] [phone] * Progesterone (07/11/2025 1:58 PM EDT) Progesterone 0.38 ng/mL 07/11/2025 11:48 PM EDT [facility] Blood Venipuncture / Unknown 07/11/2025 1:58 PM EDT 07/11/2025 1:58 PM EDT Parminder [facility] - 07/11/2025 11:48 PM EDT Progesterone Reference Ranges: Adult Males: 0.0-0.5 ng/mL Adult Femles: Follicular phase 0.1-0.9 ng/mL Ovulation phase 0.1-12.0 ng/mL Luteal phase 1.8-23.9 ng/mL Postmenopausal 0.0-0.1 ng/mL : First Trimester 11.0-44.3 ng/mL Second Trimester 25.4-83.3 ng/mL Third Trimester 58.7-214.0 ng/mL Results may be falsely increased if patient taking Biotin. Solomon BOSE LAB BLOOD ORDERABLES nal Result [facility]
[address] [place] [address], * Testosterone, Free, Total (07/11/2025 1:58 PM EDT) [facility] Testosterone, Total 44 13 - 71 ng/dL 07/21/2025 11:10 AM EDT [facility] Testosterone, Free 1.7 0.0 - 4.2 pg/mL 07/21/2025 11:10 AM EDT [facility] Blood Venipuncture / Unknown 07/11/2025 1:58 PM EDT 07/11/2025 1:58 PM EDT Narrative [facility] - 07/21/2025 11:10 AM EDT Performed at: [address] [id number] [employer] Director: Dennis Morrell PhD, Phone: [phone] Performed at: [address] [id number] [employer] Executive Director: Annie Ford MD, Phone: [phone] Solomon Bucio [place] LAB BLOOD ORDERABLES Fi nal Result [facility] [address] [place] [address], * Estradiol (07/11/2025 1:58 PM EDT) Estradiol 84.1 pg/mL 07/11/2025 11:48 PM EDT [facility] Blood Venipuncture / Unknown 07/11/2025 1:58 PM EDT 07/11/2025 1:58 PM EDT Narrative [facility] - 07/11/2025 11:48 PM EDT Estradiol Reference Ranges: Adult Males: 7.6-42.6 pg/mL Adult Femles: Follicular phase 12.5-166.0 pg/mL Ovulation phase 85.8-498.0 pg/mL Luteal phase 43.8-211.0 pg/mL Postmenopausal <6.0-54.7 pg/mL : First Trimester 215.0- >4300.0 pg/mL Child (1-10 years): Male <6.0-20.0 pg/mL Female 6.0-27.0 pg/mL Results may be falsely increased if patient taking Biotin. Solomon Bucio [place] LAB BLOOD ORDERABLES Fi nal Result [facility]
[address] [place] [address], [place] [phone] * CBC (No Diff) (07/11/2025 1:58 PM EDT) WBC 7.73 3.40 - 10.80 10*3/mm3 07/11/2025 11:02 PM EDT [facility] RBC 4.19 3.77 - 5.28 10*6/mm3 07/11/2025 11:02 PM EDT [facility] Hemoglobin 12.0 12.0 - 15.9 g/dL 07/11/2025 11:02 PM EDT [facility] Hematocrit 37.6 34.0 - 46.6 % 07/11/2025 11:02 PM EDT [facility] MCV 89.7 79.0 - 97.0 fL 07/11/2025 11:02 PM EDT [facility] MCH 28.6 26.6 - 33.0 pg 07/11/2025 11:02 PM EDT [facility] MCHC 31.9 31.5 - 35.7 g/dL 07/11/2025 11:02 PM EDT [facility] RDW 14.5 12.3 - 15.4 % 07/11/2025 11:02 PM EDT [facility] RDW-SD 47.5 37.0 - 54.0 fl 07/11/2025 11:02 PM EDT [facility] MPV 9.8 6.0 - 12.0 fL 07/11/2025 11:02 PM EDT [facility] Platelets 431 140 - 450 10*3/mm3 07/11/2025 11:02 PM EDT [facility] Blood Venipuncture / Unknown 07/11/2025 1:58 PM EDT 07/11/2025 1:58 PM EDT Solomon Bucio [place] LAB BLOOD ORDERABLES Fi nal Result [facility]
[address] [place] [address], * Comprehensive metabolic panel (07/11/2025 1:58 PM EDT) Glucose 82 65 - 99 mg/dL 07/11/2025 11:43 PM EDT [facility] BUN 13.0 6.0 - 20.0 mg/dL 07/11/2025 11:43 PM EDT [facility] Creatinine 0.92 0.57 - 1.00 mg/dL 07/11/2025 11:43 PM EDT [facility] Sodium 139 136 - 145 mmol/L 07/11/2025 11:43 PM [facility] Potassium 4.4 3.5 - 5.2 mmol/L 07/11/2025 11:43 PM [facility] Chloride 102 98 - 107 mmol/L 07/11/2025 11:43 PM [facility] CO2 22.7 22.0 - 29.0 mmol/L 07/11/2025 11:43 PM [facility] Calcium 10.3 8.6 - 10.5 mg/dL 07/11/2025 11:43 PM [facility] Total Protein 7.8 6.0 - 8.5 g/dL 07/11/2025 11:43 PM [facility] Albumin 4.7 3.5 - 5.2 g/dL 07/11/2025 11:43 PM [facility] ALT (SGPT) 15 1 - 33 U/L 07/11/2025 11:43 PM [facility] AST (SGOT) 15 1 - 32 U/L 07/11/2025 11:43 PM [facility] Alkaline Phosphatase 70 39 - 117 U/L 07/11/2025 11:43 PM [facility] Total Bilirubin 0.6 0.0 - 1.2 mg/dL 07/11/2025 11:43 PM [facility] Globulin 3.1 gm/dL 07/11/2025 11:43 PM [facility] A/G Ratio 1.5 g/dL 07/11/2025 11:43 PM [facility] BUN/Creatinine Ratio 14.1 7.0 - 25.0 07/11/2025 11:43 PM [facility] Anion Gap 14.3 5.0 - 15.0 mmol/L 07/11/2025 11:43 PM [facility] eGFR 91.0 >60.0 mL/min/1.7 3 07/11/2025 11:43 PM [facility] Blood Venipuncture / Unknown 07/11/2025 1:58 PM EDT 07/11/2025 1:58 PM EDT Narrative [facility] - 07/11/2025 11:43 PM EDT GFR [...] does not include race as a factor Solomon BOSE LAB BLOOD ORDERABLES [facility] Result [facility]
[address] [place] [address], * (ABNORMAL) Lipid Panel (07/11/2025 1:58 PM EDT) Total Cholesterol 191 0 - 200 mg/dL 07/11/2025 11:43 PM EDT [facility] Triglycerides 45 0 - 150 mg/dL 07/11/2025 11:43 PM EDT [facility] HDL Cholesterol 89(H) 40 - 60 mg/dL 07/11/2025 11:43 PM EDT [facility] LDL Cholesterol 93 0 - 100 mg/dL 07/11/2025 11:43 PM EDT [facility] VLDL Cholesterol 9 5 - 40 mg/dL 07/11/2025 11:43 PM EDT [facility] LDL/HDL Ratio 1.04 07/11/2025 11:43 PM EDT [facility] Blood Venipuncture / Unknown 07/11/2025 1:58 PM EDT 07/11/2025 1:58 PM EDT Narrative [facility] - 07/11/2025 11:43 PM EDT [...] calculated using the NIH LDL-C calculation. Solomon Bucio [place] LAB BLOOD ORDERABLES Fi nal Result Performing Organization Address City/[facility]/ZIP Co de Phone Number [facility]
[address] [place] [address], * TSH (07/11/2025 1:58 PM EDT) [facility] TSH 2.120 0.270 - 4.200 uIU/mL 07/11/2025 11:48 PM EDT [facility] Blood Venipuncture / Unknown 07/11/2025 1:58 PM EDT 07/11/2025 1:58 PM EDT Solomon Bucio [place] LAB BLOOD ORDERABLES Fi nal Result Performing Organization Address City/[facility]/ZIP Co de Phone Number [facility]
[address] [place] [address], * QuantiFERON-TB Gold Plus ([place] heparin tube) (07/11/2025 1:58 PM EDT) [facility] QuantiFERON Incubation Incubation performed. 07/16/2025 6:09 PM [...] - 07/16/2025 6:09 PM EDT Performed at: 01 - [address] [id number] [employer] Director: Dennis Morrell PhD, Phone: [phone] us Solomon BOSE LAB BLOOD ORDERABLES Fi nal Result [facility] [address] [place] [id number], documented in this encounter Visit Diagnoses Diagnosis Routine general medical examination at a health care facility Screening-pulmonary TB Screening examination for pulmonary tuberculosis Female hirsutism Hirsutism Irregular menses Irregular menstrual cycle documented in this encounter Care Teams Public Bath Attendant Relationship Specialty Start Date End Date Solomon Bucio PA [address] [facility] [address] [place] [id number] PCP - General Family Medicine 02/28/23 documented as of this encounter
[2025-07-23 00:09] VITALS: BP 140/92; PULSE 89; RESP 16; TEMP 36.8; O2SAT 99
--- OUTSIDE RECORDS SUMMARY | 2025-07-23 00:16 | XMS_ITS | Clinical Summary ---
Author Organization [facility] Address [address] [place] [address] Care Team Providers Care Composition Instructor Name Role Phone Val Ogden MD Primary Care Provider [phone] Medications escitalopram (Lexapro) 10 MG tabletIndication s:ARMANI (generalized anxiety disorder),Adjust ment disorder with mixed anxiety and depressed mood Take 1 tablet (10 mg total) by mouth 1 (one) time each day. 30 tablet 2 04/18/2022 Active Active Problems Problem Noted Date Diagnosed Date Female hirsutism 07/30/2021 Irregular menses 07/30/2021 Social History Tobacco Use Types Packs/Day Years Used Date Smoking Tobacco: Never Smokeless Tobacco: Never Alcohol Use Standard Drinks/Week Comments Never 0 (1 standard drink = 0.6 oz pur e alcohol) Comments Unknown Sex and Gender Information Value Date Recorded Sex Assigned at Female 12/06/2021 3:15 PM EST Legal Sex Female 3:27 PM EST Gender Identity Female 12/06/2021 3:15 PM EST Sexual Orientation Lesbian 12/06/2021 3: 15 PM EST Plan of Treatment Health Maintenance Due Date Last Done Comments [facility]-Depression Screening 2004 [facility]-/Child/Adol SDOH Screenings 2004 [facility]-Varicella Vaccines (1 of 2 - 13+ 2-dose series) 2017 HPV Vaccines (1 - 3-dose series) 2019 [facility]- SDOH Screenings 2022 [facility]-Adult SDOH Screenings 2022 [facility]-DTaP,Tdap,and Td Vaccine s (1 - Tdap) 2023 [facility]-Hepatitis B Vaccines (1 of 3 - 19+ 3-dose series) 2023 [facility]-[id number]-30 Vaccine (1 - 20 24-25 season) 2024 [facility]-Pap Smear 2025 [facility]-Influenza Vaccine (#1) 2025 [facility]-Zoster Vaccines (1 of 2) 2054 [facility]-HIB Vaccines Aged Out No longer e ligible based on patient's age to complete this topic [facility]-Hepatitis A Vaccines Aged Out No longer eligible based on patient's age to complete this topic [facility]-IPV Vaccines Aged Out No longer e ligible based on patient's age to complete this topic [facility]-Pneumococcal Vaccine: Pediatrics (0 to 5 Years) and At-Risk Patients (6 to 49 Years) Aged Out No long er eligible based on patient's age to complete this topic [facility]-Rotavirus Vaccines Aged Out No lo nger eligible based on patient's age to complete this topic Insurance ANTH Care Teams Composition Instructor Relationship Specialty Start Date End Date Val Ogden MD [address] [facility] [address] [place] [id number] PCP - General Adolescent Medicine 12/07/21
--- OUTSIDE RECORDS SUMMARY | 2025-07-23 00:16 | XMS_ITS | Clinical Summary ---
Author Organization [facility] Address [address] [place] [address] Care Team Providers Care Tomography Technologist Name Role Phone Solomon Bucio Primary Care Provider Allergies No known active allergies Medications Cariprazine HCl (Vraylar) 1.5 MG capsule capsuleIndicatio ns:Routine general medical examination at a health care facility Take 1 capsule by mouth Daily. Active sertraline (ZOLOFT) 50 MG tablet Take 1 tablet by mouth Every Night. 3 07/11/20 25 Discontinu ed(*Therap y completed) hydrOXYzine pamoate (VISTARIL) 50 MG capsule Take 1 capsule by mouth 4 (Four) Times a Day As Needed. 3 07/11/20 25 Discontinu ed(*Therap y completed) benzonatate (Tessalon Perles) 100 MG capsuleIndicatio ns:Acute cough Take 1 capsule by mouth 2 (Two) Times a Day. 20 capsule 3 07/11/20 25 Discontinu ed(*Therap y completed) Active Problems Problem Noted Date Diagnosed Date Palpitations 05/10/2023 Irregular menses 07/30/2021 Female hirsutism 07/30/2021 Encounters Date Type Department Care Team Description 07/18/2025 Results Follow-Up [facility] [address] [facility] [address] [place] [id number] Solomon Bucio PA 07/11/2025 2:05 PM EDT Lab [facility] AT [address] [place] [phone] Routine general medical examination at a health care facility; Screening-pulmonary TB; Female hirsutism; Irregular menses 07/11/2025 1:00 PM EDT Office Visit [facility] [address] [facility] [address] [place] [address] Solomon Bucio PA Routine general medical examination at a health care facility (Primary Dx); Female hirsutism; Irregular menses; Screening-pulmonary TB 07/11/2025 Travel from Last 3 Months Immunizations Immunization Administration Dates Next Due Covid-19 (Pfizer) Rivera Cap Monovalent 02/18/2022 ,01/28/2022 Family History Medical History Relation Name Comments No Known Problems Father No Known Problems Mother Relation Name Status Comments Brother Alive Father Alive Mother Alive Social History Tobacco Use Types Packs/Day Years [...] Industry Job Start Date Job End Date [employer] Not on file Not on file Not on file Last Filed Vital Signs Vital Sign Reading [...] Mass Index 19.51 07/11/2025 12:56 PM EDT Plan of Treatment Health Maintenance Due Date Last Done Comments Annual Gynecologic Pelvic an d Breast Exam 2004 HPV VACCINES (1 - 3-dose series) 2019 MENINGOCOCCAL B VACCINE (1 o f 2 - Standard) 2020 CHLAMYDIA SCREENING 06/14/2021 HEPATITIS C SCREENING 06/14/2021 Pneumococcal Vaccine 0-49 (1 of 2 - PCV) 2023 TDAP/TD VACCINES (1 - Tdap) 2023 PAP SMEAR 2025 COVID-19 Vaccine (3 - 2024-2 6 season) 2025 02/18/2022, 01/28/2022 INFLUENZA VACCINE 08/13/2025 ANNUAL PHYSICAL 07/11/2026 07/11/2025 MENINGOCOCCAL VACCINE Aged Out No katelynn augusto eligible based on patient's age to complete this topic Procedures Procedure Name Priority Date/Time Associated Diagnosis Comments QUANTIFERON-TB GOLD PLUS Routine 07/11/2025 1:58 PM EDT Routine general medical examination at a health care facility Screening-pulmonary TB HEMOGLOBIN A1C Routine 07/11/2025 1:58 PM EDT Routine general medical examination at a health care facility PROGESTERONE Routine 07/11/2025 1:58 PM EDT Female hirsutism Irregular menses TESTOSTERONE, FREE, TOTAL Routine 07/11/2025 1:58 PM EDT Female hirsutism Irregular menses ESTRADIOL Routine 07/11/2025 1:58 PM EDT Female hirsutism Irregular menses CBC (NO DIFF) Routine 07/11/2025 1:58 PM EDT Routine general medical examination at a health care facility Female hirsutism Irregular menses COMPREHENSIVE METABOLIC PANEL Routine 07/11/2025 1:58 PM EDT Routine general medical examination at a health care facility LIPID PANEL Routine 07/11/2025 1:58 PM EDT Routine general medical examination at a health care facility TSH Routine 07/11/2025 1:58 PM EDT Routine general medical examination at a [facility] care facility QUANTIFERON-TB GOLD PLUS (LI-HEP) Routine 07/11/2025 1:58 PM EDT Routine general medical examination at a [facility] care facility Screening-pulmonary TB from Last 3 Months Results * QuantiFERON-TB Gold Plus (07/11/2025 1:58 PM EDT) [facility] QuantiFERON Criteria Comment 07/16/2025 6:09 PM EDT [...] Value >10.00 IU/mL 07/16/2025 6:09 PM EDT [facility] Blood Venipuncture / Unknown 07/11/2025 1:58 PM EDT 07/11/2025 1:58 PM EDT Narrative [facility] - 07/16/2025 6:09 PM EDT Performed at: [address] [place] [id number] [employer] Supervisor: Dennis Morrell PhD, Phone: [phone] us Solomon BOSE LAB BLOOD ORDERABLES Fi nal Result [facility] [address] [place] [address], * QuantiFERON-TB Gold Plus (Center heparin tube) (07/11/2025 1:58 PM EDT) [facility] QuantiFERON Incubation Incubation performed. 07/16/2025 6:09 PM EDT [facility] QUANTIFERON-TB GOLD PLUS Negative Negative 07/16/2025 [...] PM EDT 07/11/2025 1:58 PM EDT [facility] - 07/16/2025 6:09 PM EDT Performed at: - [address] [id number] [employer] Supervisor: Dennis Morrell PhD, Phone: [phone] Solomon BOSE LAB BLOOD ORDERABLES Fi nal Result [facility] [address] [place] [id number], * Progesterone (07/11/2025 1:58 PM EDT) [facility] Progesterone 0.38 ng/mL 07/11/2025 11:48 PM EDT [facility] Blood Venipuncture / Unknown 07/11/2025 1:58 PM EDT 07/11/2025 1:58 PM EDT [facility] - 07/11/2025 11:48 PM EDT Progesterone Reference Ranges: Adult Males: 0.0-0.5 ng/mL Adult Femles: Follicular phase 0.1-0.9 ng/mL Ovulation phase 0.1-12.0 ng/mL Luteal phase 1.8-23.9 ng/mL Postmenopausal 0.0-0.1 ng/mL : First Trimester 11.0-44.3 ng/mL Second Trimester 25.4-83.3 ng/mL Third Trimester 58.7-214.0 ng/mL Results may be falsely increased if patient taking Biotin. Solomon [facility] LAB BLOOD ORDERABLES Fi nal Result Performing Organization Address City/[facility]/ZIP Co de Phone Number [facility]
[address] [place] [address], * Estradiol (07/11/2025 1:58 PM EDT) Estradiol 84.1 pg/mL 07/11/2025 11:48 PM EDT [facility] Blood Venipuncture / Unknown 07/11/2025 1:58 PM EDT 07/11/2025 1:58 PM EDT Narrative [facility] - 07/11/2025 11:48 PM EDT Estradiol Reference Ranges: Adult Males: 7.6-42.6 pg/mL Adult Femles: Follicular phase 12.5-166.0 pg/mL Ovulation phase 85.8-498.0 pg/mL Luteal phase 43.8-211.0 pg/mL Postmenopausal <6.0-54.7 pg/mL : First Trimester 215.0- >4300.0 pg/mL Child (1-10 years): Male <6.0-20.0 pg/mL Female 6.0-27.0 pg/mL Results may be falsely increased if patient taking Biotin. Solomon [facility] LAB BLOOD ORDERABLES Fi nal Result Performing Organization Address City/[facility]/ZIP Co de Phone Number [facility]
[address] [place] [address], * CBC (No Diff) (07/11/2025 1:58 PM EDT) WBC 7.73 3.40 - 10.80 10*3/mm3 07/11/2025 11:02 PM EDT [facility] RBC 4.19 3.77 - 5.28 10*6/mm3 07/11/2025 11:02 PM EDT [facility] Hemoglobin 12.0 12.0 - 15.9 g/dL 07/11/2025 11:02 PM EDT [facility] Hematocrit 37.6 34.0 - 46.6 % 07/11/2025 11:02 PM EDT [facility] MCV 89.7 79.0 - 97.0 fL 07/11/2025 11:02 PM EDT [facility] MCH 28.6 26.6 - 33.0 pg 07/11/2025 11:02 PM EDT [facility] MCHC 31.9 31.5 - 35.7 g/dL 07/11/2025 11:02 PM EDT [facility] RDW 14.5 12.3 - 15.4 % 07/11/2025 11:02 PM EDT [facility] RDW-SD 47.5 37.0 - 54.0 fl 07/11/2025 11:02 PM EDT [facility] MPV 9.8 6.0 - 12.0 fL 07/11/2025 11:02 PM EDT [facility] Platelets 431 140 - 450 10*3/mm3 07/11/2025 11:02 PM EDT [facility] Blood Venipuncture / Unknown 07/11/2025 1:58 PM EDT 07/11/2025 1:58 PM EDT us Solomon Bucio PA LAB BLOOD ORDERABLES Fi nal Result [facility]
[address] [place] [address], * Testosterone, Free, Total (07/11/2025 1:58 PM EDT) Testosterone, Total 44 13 - 71 ng/dL 07/21/2025 11:10 AM EDT [facility] Testosterone, Free 1.7 0.0 - 4.2 pg/mL 07/21/2025 11:10 AM EDT [facility] Blood Venipuncture / Unknown 07/11/2025 1:58 PM EDT 07/11/2025 1:58 PM EDT Narrative [facility] - 07/21/2025 11:10 AM EDT Performed at: 01 - [facility] [address] [place] [id number] [employer] Supervisor: Dennis Morrell PhD, Phone: [phone] Performed at: 02 - [address] [id number] [employer] Supervisor: Annie Ford MD, Phone: [phone] Solomon BOSE LAB BLOOD ORDERABLES Fi nal Result [facility] [address] [place] [id number], * TSH (07/11/2025 1:58 PM EDT) TSH 2.120 0.270 - 4.200 uIU/mL 07/11/2025 11:48 PM EDT [facility] Blood Venipuncture / Unknown 07/11/2025 1:58 PM EDT 07/11/2025 1:58 PM EDT Solomon BOSE LAB BLOOD ORDERABLES Fi nal Result [facility]
[address] [place] [address], * Hemoglobin A1c (07/11/2025 1:58 PM EDT) Hemoglobin A1C 5.30 4.80 - 5.60 % 07/11/2025 11:30 PM EDT [facility] Blood Venipuncture / Unknown 07/11/2025 1:58 PM EDT 07/11/2025 1:58 PM EDT [facility] - 07/11/2025 11:30 PM EDT Hemoglobin A1C Ranges: Increased Risk for Diabetes 5.7% to 6.4% Diabetes >= 6.5% Diabetic Goal < 7.0% Solomon BOSE LAB BLOOD ORDERABLES Fi nal Result [facility]
[address] [place] [address], * (ABNORMAL) Lipid Panel (07/11/2025 1:58 PM EDT) Total Cholesterol 191 0 - 200 mg/dL 07/11/2025 11:43 PM EDT [facility] Triglycerides 45 0 - 150 mg/dL 07/11/2025 11:43 PM EDT [facility] HDL Cholesterol 89(H) 40 - 60 mg/dL 07/11/2025 11:43 PM EDT [facility] LDL Cholesterol 93 0 - 100 mg/dL 07/11/2025 11:43 PM EDT [facility] VLDL Cholesterol 9 5 - 40 mg/dL 07/11/2025 11:43 PM EDT [facility] LDL/HDL Ratio 1.04 07/11/2025 11:43 PM EDT [facility] Blood Venipuncture / Unknown 07/11/2025 1:58 PM EDT 07/11/2025 1:58 PM EDT [facility] - 07/11/2025 11:43 PM EDT Cholesterol [...] LDL-C calculation. Solomon BOSE LAB BLOOD ORDERABLES [facility] Result [facility]
[address] [place] [address], * Comprehensive metabolic panel (07/11/2025 1:58 PM EDT) Glucose 82 65 - 99 mg/dL 07/11/2025 11:43 PM EDT [facility] BUN 13.0 6.0 - 20.0 mg/dL 07/11/2025 11:43 PM EDT [facility] Creatinine 0.92 0.57 - 1.00 mg/dL 07/11/2025 11:43 PM EDT [facility] Sodium 139 136 - 145 mmol/L 07/11/2025 11:43 PM EDT [facility] Potassium 4.4 3.5 - 5.2 mmol/L 07/11/2025 11:43 PM EDT [facility] Chloride 102 98 - 107 mmol/L 07/11/2025 11:43 PM EDT [facility] CO2 22.7 22.0 - 29.0 mmol/L 07/11/2025 11:43 PM EDT [facility] Calcium 10.3 8.6 - 10.5 mg/dL 07/11/2025 11:43 PM EDT [facility] Total Protein 7.8 6.0 - 8.5 g/dL 07/11/2025 11:43 PM EDT [facility] Albumin 4.7 3.5 - 5.2 g/dL 07/11/2025 11:43 PM EDT [facility] ALT (SGPT) 15 1 - 33 U/L 07/11/2025 11:43 PM EDT [facility] AST (SGOT) 15 1 - 32 U/L 07/11/2025 11:43 PM EDT [facility] Alkaline Phosphatase 70 39 - 117 U/L 07/11/2025 11:43 PM EDT [facility] Total Bilirubin 0.6 0.0 - 1.2 mg/dL 07/11/2025 11:43 PM EDT [facility] Globulin 3.1 gm/dL 07/11/2025 11:43 PM EDT [facility] A/G Ratio 1.5 g/dL 07/11/2025 11:43 PM EDT [facility] BUN/Creatinine Ratio 14.1 7.0 - 25.0 07/11/2025 11:43 PM EDT [facility] Anion Gap 14.3 5.0 - 15.0 mmol/L 07/11/2025 11:43 PM EDT [facility] eGFR 91.0 >60.0 mL/min/1.7 3 07/11/2025 11:43 PM EDT [facility] Blood Venipuncture / Unknown 07/11/2025 1:58 PM EDT 07/11/2025 1:58 PM EDT [facility] - 07/11/2025 11:43 PM EDT [...] a factor Solomon BOSE LAB BLOOD ORDERABLES Fi nal Result [facility]
[address] [place] [id number], [place] [phone] from Last 3 Months Insurance [employer] PPO [employer] PPO Care Teams Tomography Technologist Relationship Specialty Start Date End Date Solomon Bucio PA [address] [facility] [address] [place] [phone] PCP - General Family Medicine 02/28/23
--- OUTSIDE RECORDS SUMMARY | 2025-07-23 00:16 | XMS_ITS | Encounter Summary ---
Author Organization [facility] Address [address] [place] [address] Care Team Providers Care Elementary [employer] Band Director Name Role Phone Solomon Bucio Primary Care Provider Encounter Details Date Type Department Care Team (Latest Contact Info) Description 07/11/2025 Travel Social History Tobacco Use Types Packs/Day Years [...] Industry Job Start Date Job End Date [employer] Not on file Not on file Not on file documented as of this encounter Functional Status documented as of this encounter Plan of Treatment Not on file documented as of this encounter Visit Diagnoses Not on filedocumented in this encounter Care Teams [employer] Band Director Relationship Specialty Start Date End Date Solomon Bucio PA [address] [facility] [address] [place] [address] PCP - General Family Medicine 02/28/23 documented as of this encounter
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
--- OUTSIDE RECORDS SUMMARY | 2025-07-23 00:18 | XMS_ITS | Encounter Summary ---
Author Organization [facility] Address [address] [place] [address] Care Team Providers Care Financial Dealers Name Role Phone Solomon Bucio Primary Care Provider Encounter Details Date Type Department Care Team (Late st Contact Info) Description 07/18/2025 Results Follow-Up [facility] [address] [facility] [address] [place] [address] Solomon Bucio PA [address] [facility] [address] [place], [place] [phone] Social History Tobacco Use Types Packs/Day Years [...] Industry Job Start Date Job End Date [employer] Not on file Not on file Not on file documented as of this encounter Miscellaneous Notes * Telephone Encounter - Solomon Bucio PA - 07/18/2025 2:14 PM EDT Let patient know that her blood work was excellent her HDL was elevated which is the good cholesterol there is no need to do anything. As long as her LDL is under 100 that is all matters at this point documented in this encounter Plan of Treatment Not on file documented as of this encounter Visit Diagnoses Not on filedocumented in this encounter Care Teams Financial Dealers Relationship Specialty Start Date End Date Solomon Bucio PA [address] [facility] [address] [place] [address] PCP - General Family Medicine 02/28/23 documented as of this encounter
[2025-07-23 00:19] VITALS: BMI 18.8
[2025-07-23 00:21] LABS: POC Glucose,Bedside 108 gm/dL (70-110)
[2025-07-23 00:22] VITALS: PULSE 93; RESP 15; O2SAT 98
[2025-07-23] MEDS: ACETAMINOPHEN 500MG TAB 1000 MG PO (00:24)
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
[2025-07-23 00:26] VITALS: BP 120/74; PULSE 80; RESP 16; TEMP 36.7; O2SAT 98; BMI 18.8
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
[2025-07-23 00:27] LABS: Hematocrit 35.1 % (37.0-47.0); Hemoglobin 11.6 g/dL (12.2-16.2); Immature Granulocytes % 0.2 %; Mean Corpuscular HGB Conc 33.0 g/dL (31.8-35.4); Mean Corpuscular Hemoglobin 29.3 pg (27.0-31.2); Mean Corpuscular Volume 88.6 fl (81-99); Nucleated Red Blood Cells % 0 %; Platelet Count 380 K/mm3 (142-424); Red Blood Count 3.96 M/mm3 (4.20-5.40); Red Cell Distribution Width-SD 46.8 fL; White Blood Count 9.0 K/mm3 (4.8-10.8)
[2025-07-23 00:33] LABS: Albumin Level 4.9 g/dl (3.5-5.0); Chloride 104 mmol/L (98-107); Potassium 3.5 mmoL/L (3.5-5.1); Sodium 140 mmol/L (136-145)
[2025-07-23 00:36] LABS: Alanine Aminotransferase 22 U/L (12-78); Albumin/Globulin Ratio 1.6 (1.1-1.8); Alkaline Phosphatase 70 U/L (38-126); Anion Gap 14.5 mEq/L (5-15); Aspartate Amino Transferase 28 U/L (14-36); Bilirubin,Total 0.9 mg/dl (0.2-1.3); Blood Urea Nitrogen 13 mg/dl (7-17); Calcium 9.9 mg/dl (8.4-10.2); Carbon Dioxide 25 mmol/L (22.0-30.0); Creatinine Clearance Estimated 96 mL/min (50-200); Creatinine,Serum 0.80 mg/dl (0.52-1.04); Estimated Glomerular Filt Rate 91 ml/min (>60); GFR (African American) 110 ML/MIN (>60); Globulin 3.1 g/dL (1.3-3.2); Glucose 104 mg/dl (74-100); Total Protein,Serum 8.0 g/dl (6.3-8.2)
[2025-07-23 00:42] LABS: HCG Qualitative, Serum Negative (Negative)
[2025-07-23] MEDS: 0.9 % SODIUM CHLORIDE 50 ML VIAL IV (00:56)
[2025-07-23] MEDS: IOPAMIDOL-370 (76%);100ML BOTTLE 80 ML IV (00:56)
[2025-07-23] MEDS: SODIUM CHLORIDE 0.9% 10ML SYR (RAD ONLY) 10 ML IV (00:56)
[2025-07-23] MEDS: KETOROLAC 30MG/ML VIAL 30 MG IV (00:58)
[2025-07-23 01:01] VITALS: BP 122/80; PULSE 67; RESP 20; O2SAT 100
[2025-07-23] MEDS: PROCHLORPERAZINE 10MG/2ML VIAL 10 MG IV (01:07)
[2025-07-23 02:07] VITALS: BP 116/74; PULSE 74; RESP 16; TEMP 36.7; O2SAT 99
== END 2025-07-23 02:11 | disposition home or self-care (01) ==
PROVIDERS: Emergency Provider Emergency Medicine
DX: S09.90XA Unspecified injury of head, initial encounter (principal); M25.461 Effusion, right knee; E04.1 Nontoxic single thyroid nodule; F17.210 Nicotine dependence, cigarettes, uncomplicated; V29.99XA Rider (driver) (passenger) of other motorcycle injured in unspecified traffic accident, initial encounter
CPT/HCPCS: 70450; 71275; 72125; 72128; 72131; 73564; 74174; 80053; 82962; 84703; 85025; 96374; 96375; 99285; J0780; J1200; J1885; Q9967